=== PATIENT | male | born 1945 | race Caucasian/White ===

== ENCOUNTER → 2017-05-06 09:12 | Outpatient (CLI) | payer MEDICARE | END | disposition home or self-care (01) | LOC: D.MRI 09:12 | DX: M54.16 Radiculopathy, lumbar region (principal) ==

== ENCOUNTER 2018-04-05 07:33 | Outpatient (CLI) | payer MEDICARE ==
[~2018-04-05] VITALS: Ht 182.9 cm; Wt 120.5 kg
[2018-04-05 08:08] LABS: BASOPHILS 0.3 % (0-2); EOSINOPHILS 5.8 % (0-7); HEMATOCRIT 39.8 % (42.0-54.0); HEMOGLOBIN 13.3 g/dL (13.5-17.5); IMMATURE GRANULOCYTES 0.3 % (0-5); LYMPHOCYTES 24.5 % (15-50); MCH 29.4 pg (26.0-34.0); MCHC 33.4 g/dL (31.0-37.0); MCV 87.9 fL (80.0-100.0); MEAN PLATELET VOLUME 9.1 fL (7.4-10.4); MONOCYTES 9.6 % (2-11); NEUTROPHILS 59.5 % (40-80); PLATELET COUNT 285 10x3/uL (130-400); RBC 4.53 10x6/uL (4.20-6.10); RDW 14.4 % (11.5-14.5); WBC 11.9 10x3/uL (4.8-10.8)
[2018-04-05 08:16] LABS: ANION GAP 13.3 mmol/L (8-16); CREATININE - SERUM 1.3 mg/dL (0.6-1.3); POTASSIUM - SERUM 4.3 mmol/L (3.5-5.1)
[2018-04-05 08:18] LABS: APTT 31.6 SECONDS (22.8-39.4); INR 1.03 (0.85-1.17)
[2018-04-05] MEDS ORDERED: BASAGLAR K100 UNIT/1 SQ ×2 (08:19→08:20)
[2018-04-05] MEDS ORDERED: PRAVACHOL40 MG PO (08:21)
[2018-04-05] MEDS ORDERED: VERAPAMIL HCL40 MG PO (08:22)
[2018-04-05] MEDS ORDERED: NIASPAN500 MG PO (08:23)
[2018-04-05] MEDS ORDERED: OMEGA-3100 MG PO (08:23)
[2018-04-05] MEDS ORDERED: VITAMIN D31000 UNIT PO (08:26)
[2018-04-05] MEDS ORDERED: GLUCOSAMINE HC500 MG PO (08:26)
[2018-04-05] MEDS ORDERED: POTASSIUM99 M1 PO (08:27)
[2018-04-05] MEDS ORDERED: ASCORBIC ACID500 MG PO (08:28)
[2018-04-05] MEDS ORDERED: CINNAMON500 MG PO (08:28)
[2018-04-05 08:40] VITALS: BP 155/86; Ht 182.9 cm; Wt 120.5 kg
--- NOTE | 2018-04-05 11:05 | NUR ---
1055 DRESSING CDI NO HEMATOMA, DRINKING COFFEE, ADA DIET HAS BEEN ORDERED..
== END 2018-04-05 12:30 | disposition home or self-care (01) ==
LOC: D.SP 07:33 → D.CT 10:00 → D.SP 12:30
PROVIDERS: Radiology Diagnostic Radiology
DX: D72.829 Elevated white blood cell count, unspecified (principal)

== ENCOUNTER → 2018-09-05 08:51 | Outpatient (CLI) | payer MEDICARE ==
[2018-04-05 08:40] VITALS: BMI 36.0
[~2018-09-05 08:51] MED LIST: ASCORBIC ACID500 MG PO; BASAGLAR K100 UNIT/1 SQ; CINNAMON500 MG PO; GLUCOSAMINE HC500 MG PO; NIASPAN500 MG PO; OMEGA-3100 MG PO; POTASSIUM99 M1 PO; PRAVACHOL40 MG PO; VERAPAMIL HCL40 MG PO; VITAMIN D31000 UNIT PO
--- NOTE | 2018-09-08 16:51 | ST ---
PATIENT:TABITHA ALTMAN JR MEDICAL RECORD: [id number] SEX: M LOCATION:[facility] ORDER #: ADMISSION DATE: 09/05/18 AGE OF PATIENT: 73 REFERRING PHYSICIAN: INTERPRETING PHYSICIAN: MASTER FLORES MD DATE OF SERVICE: 09/05/2018 INDICATION: Angina, shortness of breath, abnormal ECG, diabetes, hypertension. DESCRIPTION OF PROCEDURE: He was exercised on standard Lexiscan protocol with 33 mCi of sestamibi injected at peak stress, 11 mCi were used previously for rest images. FINDINGS: Gated SPECT reveals a preserved ejection fraction at 76% with decreased thickening and brightening throughout the inferior segments. SPECT imaging: Cardiolite was used as myocardial perfusion agent. There was a fixed perfusion defect inferiorly compatible with previous inferior myocardial infarction; however, the remaining segments with homogeneous uptake at rest and stress and there was no evidence of reversible ischemia. OVERALL IMPRESSION: This is mildly abnormal nuclear stress test only showing a fixed perfusion defect inferiorly. No ongoing ischemic burden and ejection fraction preserved at 76%. Continue medical management of the coronary artery disease and cardiac risk factors. TRANSINT:[id number] Voice Confirmation ID: [id number] DOCUMENT ID: [id number] MASTER FLORES MD at 1651 CC: SHREYA BERRY DO [id number] DICTATION DATE: 09/05/18 1626 RADIO REPAIRMAN: 09/06/18 0037 DEP CLI 09/05/18 [facility] [address] [place] [address]
== END | disposition home or self-care (01) ==
LOC: D.HCCARDIO 08:51
PROVIDERS: ATTEND Internal Medicine Interventional Cardiology
DX: I20.9 Angina pectoris, unspecified (principal)

== ENCOUNTER → 2019-09-20 09:28 | Outpatient (CLI) | payer MEDICARE ==
[2018-04-05 08:40] VITALS: BMI 36.0
--- NOTE | 2019-09-21 09:27 | EC ---
PATIENT:TABITHA ALTMAN JR DATE OF SERVICE: 09/20/19 SEX: M MEDICAL RECORD: [id number] DATE OF : 41 [facility] AGE OF PATIENT: 74 ADMISSION DATE: 09/20/19 REFERRING PHYSICIAN: INTERPRETING PHYSICIAN: YENNIFER JACOBO MD ECHOCARDIOGRAM REPORT ECHO CHARGES 4 ECHO COMPLETE Date: 09/20/19 CLINICAL DIAGNOSIS: CAD/HTN/ASSESS EF AND VALVES ECHOCARDIOGRAPHIC MEASUREMENTS (adult normal given) AC root (d.<3.7cm) 4.4 cm LV Septum d (<1.2 cm> 1.2 cm Valve Excursion 1.9 cm LV Septum (systole) 1.5 cm Left Atria (s.<4.0cm> 3.9 cm LVPW d(<1.2cm) 1.4 cm RV (d.<2.3cm) 4.1 cm LVPW (sytole) 1.7 cm LV diastole(<5.6CM) 5.2 cm MV E-F(>70mm/sec) cm LV systole 3.8 cm LVOT Diameter 2.2 cm MV exc.(>10mm) 1.3 cm Est.ejection fraction (50-75%) % DOPPLER: LVIT cm/sec A 73.0 cm/sec E 61.0 cm/sec LA cm/sec RVSP 16 mmHg LVOT 111 cm/sec AOP1/2T m/s Asc. Ao 123 cm/sec RVOT 97 cm/sec RA cm/sec PA 128 cm/sec AV Gradient Peak 6.10 mmHg AV Mean 3.69 mmHg AV Area 3.3 cm MV Gradient Peak 3.28 mmHg MV Mean 1.37 mmHg MV Area cm COMMENTS: Tugboat Operator: 2 ELVIRA VILLEGAS Casing Tester: 3 Dr. Renae TAPE# PACS Pericardial Effusion N DATE OF SERVICE: Adequate 2D, color flow imaging, spectral Doppler, and M-Mode. No LVH present. LV internal dimensions are normal. Wall motion is normal. EF is greater than or equal to 55%. Aortic valve is tricuspid. No evidence of stenosis by Doppler interrogation. Left atrium is normal at 3.9 cm. Mitral valve shows no prolapse. Trace MR. Right-sided chambers are grossly normal. Trace TR. ECHOCARDIOGRAM REPORT [id number] TABITHA ALTMAN JR TRANSINT:[id number] Voice Confirmation ID: [id number] DOCUMENT ID: [id number] YENNIFER JACOBO MD at 0927 CC: [id number] DICTATION DATE: 09/20/19 161 SHEET METAL TECHNICIAN: 09/20/19 2310 DEP CLI 09/20/19 [place] [id number] [place] [id number]
== END | disposition home or self-care (01) ==
LOC: D.HCCECHO 09:28
PROVIDERS: ATTEND Internal Medicine Interventional Cardiology
DX: I20.9 Angina pectoris, unspecified (principal)

== ENCOUNTER → 2020-06-10 09:24 | Outpatient (CLI) | payer MEDICARE ==
[2020-02-14 10:01] VITALS: BMI 32.6
[~2020-06-10 09:24] MED LIST changes: +BUMEX2 MG PO; +CARAFATE1 G PO; +CLEOCIN HCL300 MG PO; +COLACE100 MG PO; +ELIQUIS2.5 MG PO; +ELIQUIS5 MG PO; +FLORAJEN3 CAPS460 MG PO; +HOME OXYGEN INH; +IPRAT-ALBUT 0.5-3 ML UPD; +LANTUS INS100 UNITS/ SC; +MIRALAX17 GM PO; +MUCINEX600 MG PO; +OMNICEF300 MG PO; +PERFOROMIS20 MCG/21 UPD; +PREDNISONE10 MG PO; +PROTONIX40 MG PO; +PULMICORT0.5 MG/21 UPD; +VISTARIL25 MG PO
[2020-06-10 11:40] LABS: CREATININE - SERUM 1.6 mg/dL (0.6-1.3)
[2020-06-12 12:11] LABS: PROTEIN S - FREE 132 % (57-157); PROTEIN S - FUNCTIONAL 107 % (63-140); PROTEIN S - TOTAL 95 % (60-150)
== END | disposition home or self-care (01) ==
LOC: D.CT 09:15
PROVIDERS: ATTEND Internal Medicine Pulmonary Disease
DX: Z86.711 Personal history of pulmonary embolism (principal)